=== PATIENT | female | born 1990 | race Caucasian/White ===

== ENCOUNTER → 2016-06-06 | Outpatient (CLI) | payer BC ==
[~2016-06-06] MED LIST: ACET-654 PO; ALEV220T26 PO; CIPR250T2 PO; VICO5TAB16 PO
[2016-06-06 12:00] LABS: FREE T4 1.06 NG/DL (0.76-1.46)
[2016-06-08 10:21] LABS: THYROID PEROXIDASE ANTIBODY 38.4 U/ML (<60.0)
== END ==
LOC: M LAB 11:05
PROVIDERS: ATTEND Internal Medicine Endocrinology, Diabetes & Metabolism
DX: E03.9 Hypothyroidism, unspecified (principal)

== ENCOUNTER → 2016-11-05 | Outpatient (REF) | payer BC ==
[~2016-11-05] MED LIST changes: +BENT20TA PO
== END ==
LOC: M LAB REF 10:06
PROVIDERS: ATTEND Physician Assistant
DX: T24.211D Burn of second degree of right thigh, subsequent encounter (principal); X58.XXXD Exposure to other specified factors, subsequent encounter; Y93.9 Activity, unspecified; Y92.9 Unspecified place or not applicable; Y99.8 Other external cause status

== ENCOUNTER 2017-02-14 12:12 | Emergency (ER) | payer BC ==
[~2017-02-14] VITALS: Ht 157.5 cm; Wt 80.9 kg
[~2017-02-14 12:12] MED LIST changes: -BENT20TA PO
[2017-02-14] MEDS ORDERED: KETOROLAC 30 MG/ML VIAL (J1885) IV ONE (12:45)
[2017-02-14] MEDS ORDERED: NS 1,000 ML IV ONE (12:45)
[2017-02-14] MEDS ORDERED: ONDANSETRON 4MG/2ML VIAL (J2405) IV ONE (12:45)
[2017-02-14 13:22] LABS: BASO # 0.1 10^3/uL (0.0-0.2); BASO % 0.6 % (0.0-1.0); EOS # 0.6 10^3/uL (0.0-0.50); EOS % 6.2 % (0.0-3.0); IMMATURE GRANULOCYTE % 0.2 % (0-0); LYMPH # 3.1 10^3/uL (1.5-6.5); MEAN CORPUSCULAR HEMOGLOBIN 23.5 pg (27.0-33.0); MEAN CORPUSCULAR HGB CONC 30.6 g/dl (32.0-36.5); MEAN CORPUSCULAR VOLUME 76.7 fl (80.0-96.0); MONO # 0.8 10^3/uL (0.0-0.8); MONO % 8.9 % (0.0-5.0); NEUTROPHILS # 4.8 10^3/uL (1.8-7.7); NEUTROPHILS % 51.1 % (36.0-66.0); PLATELET COUNT, AUTOMATED 412 10^3/uL (150-450); RED CELL DISTRIBUTION WIDTH 15.4 % (11.5-14.5); WHITE BLOOD COUNT 9.4 10^3/uL (4.0-10.0)
[2017-02-14 13:39] LABS: ALBUMIN 3.5 GM/DL (3.2-5.2); ALKALINE PHOSPHATASE 125 U/L (45-117); ALT/SGPT 42 U/L (12-78); AMYLASE 76 U/L (25-115); ANION GAP 5 MEQ/L (8-16); AST/SGOT 31 U/L (15-37); BILIRUBIN,DIRECT < 0.1 MG/DL (0.0-0.2); BILIRUBIN,TOTAL 0.3 MG/DL (0.2-1.0); BLOOD UREA NITROGEN 7 MG/DL (7-18); CARBON DIOXIDE LEVEL 27 MEQ/L (21-32); CHLORIDE LEVEL 105 MEQ/L (98-107); CONTROL LINE HCG INT CTR LINE PRESENT; CREATININE FOR GFR 0.75 MG/DL (0.55-1.02); GLOMERULAR FILTRATION RATE > 60.0 (>60); GLUCOSE, FASTING 89 MG/DL (70-105); POTASSIUM SERUM 3.9 MEQ/L (3.5-5.1); SODIUM LEVEL 137 MEQ/L (136-145); TOTAL PROTEIN 7.9 GM/DL (6.4-8.2)
[2017-02-14] MEDS ORDERED: ISOVUE-370 76% 100ML VIAL (Q9967) As Ordered ONE (13:44)
[2017-02-14] MEDS ORDERED: BENT20TA PO (14:23)
--- NOTE | 2017-02-14 14:28 | REP ---
REASON FOR EXAM: Right lower quadrant pain. COMPARISON: 05/09/2013 CONTRAST: 100 mL Isovue 370 The lung bases are clear and unchanged. The liver, gallbladder, spleen, pancreas, adrenal glands and kidneys are within normal limits. The abdominal aorta and para-aortic regions are within normal limits. There is no free fluid or free air. The bowel loops and their mesenteries are within normal limits. CT PELVIS: There is no pelvic mass or adenopathy. There is no free fluid or free air. The bowel loops and their mesenteries are within normal limits. The imaged osseous structures are stable and intact. IMPRESSION: CT findings are within normal limits. Signed by Roberto Carlos Tompkins DO 02/14/2017 03:32 P
[2017-02-14 14:29] VITALS: BP 112/65
== END 2017-02-14 14:40 | disposition home or self-care (01) ==
LOC: M ED 12:12
DX: R10.84 Generalized abdominal pain (principal); K58.8 Other irritable bowel syndrome
CPT/HCPCS: 74177; 80048; 80076; 81001; 81025; 82150; 83690; 84703; 85025; 96374; 96375; 99283; J1885; J2405; Q9967

== ENCOUNTER → 2017-05-19 | Outpatient (CLI) | payer BC | LOC: M RAD 13:18 | DX: R10.31 Right lower quadrant pain (principal); N94.6 Dysmenorrhea, unspecified | CPT/HCPCS: 76856 ==

== ENCOUNTER → 2017-05-22 | Outpatient (CLI) | payer BC ==
[2017-05-22 12:08] LABS: BASO # 0.1 10^3/uL (0.0-0.2); BASO % 0.6 % (0.0-1.0); EOS # 0.3 10^3/uL (0.0-0.50); EOS % 4.1 % (0.0-3.0); HEMATOCRIT 36.2 % (36.0-47.0); HEMOGLOBIN 11.3 g/dl (12.0-16.0); IMMATURE GRANULOCYTE % 0.2 % (0-0); LYMPH % 36.7 % (24.0-44.0); MEAN CORPUSCULAR HEMOGLOBIN 24.2 pg (27.0-33.0); MEAN CORPUSCULAR HGB CONC 31.2 g/dl (32.0-36.5); MEAN CORPUSCULAR VOLUME 77.5 fl (80.0-96.0); MONO # 0.6 10^3/uL (0.0-0.8); MONO % 7.6 % (0.0-5.0); NEUTROPHILS # 4.1 10^3/uL (1.8-7.7); NEUTROPHILS % 50.8 % (36.0-66.0); PLATELET COUNT, AUTOMATED 409 10^3/uL (150-450); RED BLOOD COUNT 4.67 10^6/uL (4.00-5.40); RED CELL DISTRIBUTION WIDTH 14.7 % (11.5-14.5); WHITE BLOOD COUNT 8.1 10^3/uL (4.0-10.0)
[2017-05-22 12:41] LABS: ALBUMIN 3.7 GM/DL (3.2-5.2); ALKALINE PHOSPHATASE 131 U/L (45-117); ALT/SGPT 29 U/L (12-78); ANION GAP 6 MEQ/L (8-16); AST/SGOT 24 U/L (7-37); BILIRUBIN,TOTAL 0.4 MG/DL (0.2-1.0); BLOOD UREA NITROGEN 9 MG/DL (7-18); CALCIUM LEVEL 8.8 MG/DL (8.5-10.1); CARBON DIOXIDE LEVEL 26 MEQ/L (21-32); CHLORIDE LEVEL 107 MEQ/L (98-107); CHOLESTEROL LEVEL 180 MG/DL (<200); CHOLESTEROL RISK RATIO 3.461 (<5); GLOMERULAR FILTRATION RATE > 60.0 (>60); GLUCOSE, FASTING 78 MG/DL (70-105); HDL CHOLESTEROL 52 MG/DL (>40); LDL CHOLESTEROL 105.2 MG/DL (<100); NON-HDL-C 128 MG/DL; POTASSIUM SERUM 4.1 MEQ/L (3.5-5.1); SODIUM LEVEL 139 MEQ/L (136-145); TOTAL PROTEIN 7.8 GM/DL (6.4-8.2); TRIGLYCERIDES LEVEL 114 MG/DL (<150)
== END ==
LOC: M LAB 11:29
DX: N94.6 Dysmenorrhea, unspecified (principal); R10.31 Right lower quadrant pain
CPT/HCPCS: 84443

== ENCOUNTER → 2017-06-17 | Outpatient (CLI) | payer BC | LOC: M RAD 08:06 | DX: R10.31 Right lower quadrant pain (principal); K76.0 Fatty (change of) liver, not elsewhere classified | CPT/HCPCS: 76705 ==

== ENCOUNTER → 2017-10-06 | Outpatient (REF) | payer BC | LOC: M LAB REF 12:04 | DX: Z12.4 Encounter for screening for malignant neoplasm of cervix (principal) | CPT/HCPCS: G0123 ==

== ENCOUNTER → 2017-12-28 | Outpatient (REF) | payer BC | LOC: M LAB REF 17:56 | DX: K29.71 Gastritis, unspecified, with bleeding (principal) | CPT/HCPCS: 87086 ==

== ENCOUNTER → 2017-12-28 | Outpatient (CLI) | payer BC ==
[2017-12-28 18:27] LABS: BASO # 0.1 10^3/uL (0.0-0.2); BASO % 0.7 % (0.0-1.0); EOS # 0.6 10^3/uL (0.0-0.50); EOS % 6.1 % (0.0-3.0); HEMATOCRIT 32.5 % (36.0-47.0); HEMOGLOBIN 9.9 g/dl (12.0-15.5); IMMATURE GRANULOCYTE % 0.3 % (0-3.0); MEAN CORPUSCULAR HEMOGLOBIN 22.8 pg (27.0-33.0); MEAN CORPUSCULAR HGB CONC 30.5 g/dl (32.0-36.5); MEAN CORPUSCULAR VOLUME 74.9 fl (80.0-96.0); MONO # 0.8 10^3/uL (0.0-0.8); MONO % 8.3 % (0.0-5.0); NEUTROPHILS % 52.6 % (36.0-66.0); PLATELET COUNT, AUTOMATED 464 10^3/uL (150-450); RED BLOOD COUNT 4.34 10^6/uL (4.00-5.40); WHITE BLOOD COUNT 9.5 10^3/uL (4.0-10.0)
[2017-12-28 19:24] LABS: ALBUMIN 3.2 GM/DL (3.2-5.2); ALBUMIN/GLOBULIN RATIO 0.73 (1.00-1.93); ALKALINE PHOSPHATASE 105 U/L (45-117); ALT/SGPT 31 U/L (12-78); AMYLASE 73 U/L (25-115); ANION GAP 9 MEQ/L (8-16); AST/SGOT 21 U/L (7-37); BILIRUBIN,TOTAL 0.3 MG/DL (0.2-1.0); BLOOD UREA NITROGEN 9 MG/DL (7-18); CALCIUM LEVEL 8.6 MG/DL (8.5-10.1); CARBON DIOXIDE LEVEL 25 MEQ/L (21-32); CHLORIDE LEVEL 108 MEQ/L (98-107); CREATININE FOR GFR 0.63 MG/DL (0.55-1.30); FREE T4 1.08 NG/DL (0.76-1.46); GLOMERULAR FILTRATION RATE > 60.0 (>60); GLUCOSE, FASTING 90 MG/DL (70-100); LIPASE 169 U/L (73-393); POTASSIUM SERUM 4.1 MEQ/L (3.5-5.1); SODIUM LEVEL 142 MEQ/L (136-145); TOTAL PROTEIN 7.6 GM/DL (6.4-8.2)
== END ==
LOC: M WUC 14:32
DX: K92.0 Hematemesis (principal)
CPT/HCPCS: 82150

== ENCOUNTER → 2018-04-25 | Outpatient (REF) | payer BC, MEDICAID ==
[~2018-04-25] MED LIST changes: +BENT20TA PO
== END ==
LOC: M LAB REF 15:19
PROVIDERS: ATTEND Physician Assistant
DX: N39.0 Urinary tract infection, site not specified (principal)

== ENCOUNTER 2018-05-31 23:59 | Inpatient (IN) | payer BC, MEDICAID, OTHER ==
[~2018-05-31] VITALS: Ht 172.7 cm; Wt 81.5 kg
[2018-06-01 00:39] LABS: HEMATOCRIT 38.1 % (36.0-47.0); HEMOGLOBIN 11.5 g/dl (12.0-15.5); MEAN CORPUSCULAR HEMOGLOBIN 22.2 pg (27.0-33.0); MEAN CORPUSCULAR HGB CONC 30.2 g/dl (32.0-36.5); MEAN CORPUSCULAR VOLUME 73.4 fl (80.0-96.0); PLATELET COUNT, AUTOMATED 524 10^3/uL (150-450); RED BLOOD COUNT 5.19 10^6/uL (4.00-5.40); WHITE BLOOD COUNT 12.2 10^3/uL (4.0-10.0)
[2018-06-01] MEDS ORDERED: NS 1,000 ML IV ONE (00:45)
[2018-06-01 00:51] LABS: HCG, SERUM QUALITATIVE NEGATIVE (NEGATIVE)
[2018-06-01 01:03] LABS: AMPHETAMINES LEVEL URINE NEGATIVE (NEGATIVE); BARBITURATES URINE NEGATIVE (NEGATIVE); BENZODIAZEPINES URINE NEGATIVE (NEGATIVE); CANNABINOIDS URINE NEGATIVE (NEGATIVE); COCAINE METABOLITE URINE NEGATIVE (NEGATIVE); METHADONE URINE NEGATIVE (NEGATIVE); OPIATES URINE NEGATIVE (NEGATIVE); PHENCYCLIDINE URINE NEGATIVE (NEGATIVE)
[2018-06-01 01:16] LABS: ACETAMINOPHEN LEVEL < 2.0 UG/ML (10.0-30.0); ALBUMIN 3.2 GM/DL (3.2-5.2); ALT/SGPT 40 U/L (12-78); BILIRUBIN,DIRECT < 0.1 MG/DL (0.0-0.2); BILIRUBIN,TOTAL 0.1 MG/DL (0.2-1.0); BLOOD UREA NITROGEN 7 MG/DL (7-18); CALCIUM LEVEL 8.5 MG/DL (8.5-10.1); CARBON DIOXIDE LEVEL 24 MEQ/L (21-32); CHLORIDE LEVEL 106 MEQ/L (98-107); CPK CREATINE PHOSPHOKINASE 114 U/L (26-192); CREATININE FOR GFR 0.77 MG/DL (0.55-1.30); ETHYL ALCOHOL (ETHANOL) < 0.003 % (0.000-0.010); GLOMERULAR FILTRATION RATE > 60.0 (>60); GLUCOSE, FASTING 117 MG/DL (70-100); POTASSIUM SERUM 3.7 MEQ/L (3.5-5.1); SALICYLATE LEVEL < 1.7 MG/DL (5.0-30.0); SODIUM LEVEL 138 MEQ/L (136-145); TOTAL PROTEIN 7.8 GM/DL (6.4-8.2)
[2018-06-01 01:54] LABS: EOSINOPHILS 1 % (0-5); LYMPHOCYTES 34 % (16-52); MONOCYTES 8 % (0-8); NEUTROPHILS 57 % (35-75); PLATELET ESTIMATE INCREASED (NORMAL)
[2018-06-01 01:55] LABS: ANISOCYTOSIS 1+
[2018-06-01] MEDS ORDERED: LORazepam 2 MG/ML VIAL (J2060) IV STA (02:08)
[2018-06-01 04:02] LABS: FREE T4 1.06 NG/DL (0.76-1.46)
[2018-06-01 08:45] LABS: FERRITIN 4 NG/ML (8-252); IRON (FE) 22 UG/DL (50-170); PERCENT SATURATION 4.5 % (13.2-45.0); TOTAL IRON BINDING CAPACITY 492 UG/DL (250-450)
[2018-06-01] MEDS: SERTRALINE HCL 25 MG TABLET PO SCH (09:00)
[2018-06-01] MEDS ORDERED: FERROUS GLUCONATE 324 MG TAB PO ONE (10:00)
[2018-06-01] MEDS ORDERED: LORazepam 0.5 MG TAB PO PRN (14:00)
[2018-06-01] MEDS ORDERED: traZODone 50 MG TAB PO PRN (14:00)
[2018-06-01] MEDS ORDERED: MAALOX 30 ML SUSP *UDC PO PRN (14:00)
[2018-06-01] MEDS ORDERED: ACETAMINOPHEN TAB 650MG DOSE (2X325MG) PO PRN (14:00)
[2018-06-01] MEDS ORDERED: MOM 30ML SUSPENSION UDC PO PRN (14:00)
[2018-06-01 14:41] LABS: FOLATE 17.9 NG/ML
[2018-06-01 14:58] VITALS: BP 152/83
--- NOTE | 2018-06-01 17:46 | ECGEPIP ---
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
[2018-06-01] MEDS: LEVONOR ETH ESTRAD PO SCH (22:16)
[2018-06-02 06:42] VITALS: BP 128/61
[2018-06-02] MEDS: SERTRALINE HCL 25 MG TABLET PO SCH (08:49)
--- NOTE | 2018-06-02 09:41 | HPEPDOC ---
[facility] Medical History & Physical Date of Admission Jun 01, 2018 History and Physical PCP: Jennifer Wolf MD ATTENDING: Dr. Charles Miles HPI: 28yoF admitted to [facility] for unspecified mood disorder, being medically examined today. No acute medical complaints today. Denies any fevers, chills, weakness, fatigue, CADENA, CP, SOB, cough, palpitations, abdominal pain, N/V/D or changes in bowel or bladder habits. PMHx: anxiety depression H/O SI PSHX: Pyelonephritis/S/P Lithotripsy 2013. SOCHX: Resides in: [facility] Marital Status: Single Kids: None Employment: [employer] employee Tobacco use: Denies ETOH: Denies Illicit Drugs: Denies IV Drug Use: Denies Tattoos done unprofessionally: Denies FAMHX: Mother: Alive, diabetes Father: Alive, well Siblings: None Children: None Unexpected deaths due to medical reasons: None. ROS: As noted in HPI, otherwise 11pt ROS of systems reviewed and remarkable only for LMP unknown. PE: GEN: 28 yo F, appears stated age. Well-nourished, well developed. No acute distress. Alert and oriented x 3. Pleasant, interactive. HEENT: Normocephalic, atraumatic. Pupils are equal, round, and reactive to light. Extraocular movements are intact. No nystagmus appreciated. Sclera are nonicteric. Conjunctiva without injection. Nose midline. Nasal turbinates without bogginess. EACs both patent BL. TMs both visualized and mancuso with good cone of light, no bulging or erythema. No facial asymmetry. Moist mucous membranes. Dentition fair. Pharynx pink and moist, no cobblestoning. Neck supple, trachea midline. No lymphadenopathy or thyromegaly appreciated. CHEST: Regular rate and rhythm, +S1, +S2 LUNGS: Clear to auscultation bilaterally. No wheezes, rales, or rhonchi. Breathing appears symmetric and easy. Patient is speaking in full sentences. No accessory muscle use. ABD: Round, soft, non-tender, non-distended. +Bowel sounds throughout. No rebound or guarding. No costovertebral angle tenderness. EXT: Pulses 2+ bilaterally dorsalis pedis and radial. No lower extremity edema appreciated. SKIN: [place], dry, warm. Capillary refill <2sec. No rashes. NEURO: Alert and oriented x 3. Cranial nerves III-XII are intact. No focal deficits appreciated. EKG: SINUS TACHYCARDIA NO PRIOR FOR COMPARISON ABNORMAL RHYTHM ECG Electronically Signed On 06-01-2018 17:46:24 EST by Nancy Fall A&P: 28yoF admitted to [facility] for unspecified mood disorder 1. Psych. Plan per Psychiatry. EKG on file. 2. Leukocytosis. Patient is afebrile. Possible stress response. Recheck CBC in a.m. Check UA with reflex culture. 3. Abnormal TSH. Recheck TFTs in a.m. 4. Follow up with PCP on discharge. 5. Mild anemia. Hemoglobin is noted to be 11.5. Patient states she is currently on OCP related to heavy menstrual bleeding. The patient is noted to be iron deficient, add iron supplement twice a day. Folate is within normal limits. Vitamin B12 pending. 6. Continue OCP. 7. Staff member Daniela LOPEZ present throughout exam. Vital Signs Vital Signs Date Time Temp Pulse Resp B/P (MAP) Pulse Ox O2 Delivery O2 Flow Rate FiO2 06/02/18 06:42 98.1 94 14 128/61 (83) Room Air 06/01/18 14:28 99 Laboratory Data CBC/BMP Item Value Date Time White Blood Count 12.2 10^3/uL H 06/01/18 0025 Red Blood Count 5.19 10^6/uL 06/01/18 0025 Hemoglobin 11.5 g/dl L 06/01/18 002 Hematocrit 38.1 % 06/01/18 0025 Mean Corpuscular Volume 73.4 fl L 06/01/18 0025 Mean Corpuscular Hemoglobin 22.2 pg L 06/01/18 0025 Mean Corpuscular Hemoglobin Concent 30.2 g/dl L 06/01/18 0025 Red Cell Distribution Width 15.9 % H 06/01/18 002 Platelet Count 524 10^3/uL H 06/01/18 0025 Sodium Level 138 MEQ/L 06/01/18 0025 Potassium Level 3.7 MEQ/L 06/01/18 0025 Chloride Level 106 MEQ/L 06/01/18 0025 Carbon Dioxide Level 24 MEQ/L 06/01/18 0025 Anion Gap 8 MEQ/L 06/01/1824 Blood Urea Nitrogen 7 MG/DL 06/01/1824 Creatinine 0.77 MG/DL 06/01/1824 Glomerular Filtration Rate > 60.0 06/01/1824 Fasting Glucose 117 MG/DL H 06/01/1824 Calcium Level 8.5 MG/DL 06/01/1824 Iron Level 22 UG/DL L 06/01/1824 Total Iron Binding Capacity 492 UG/DL H 06/01/1824 Transferrin % Saturation 4.5 % L 06/01/1824 Ferritin 4 NG/ML L 06/01/1824 Total Bilirubin 0.1 MG/DL L 06/01/1824 Direct Bilirubin < 0.1 MG/DL 06/01/1824 Aspartate Amino Transf (AST/SGOT) 26 U/L 06/01/1824 Alanine Aminotransferase (ALT/SGPT) 40 U/L 06/01/1824 Alkaline Phosphatase 114 U/L 06/01/1824 Total Creatine Kinase 114 U/L 06/01/1824 Total Protein 7.8 GM/DL 06/01/1824 Albumin 3.2 GM/DL 06/01/1824 Albumin/Globulin Ratio 0.70 L 06/01/1824 Folate 17.9 NG/ML 06/01/1824 Thyroid Stimulating Hormone (TSH) 5.550 uIU/ML H 06/01/1824 Free Thyroxine 1.06 NG/DL 06/01/1824 Human Chorionic Gonadotropin, Qual NEGATIVE 06/01/1824 Salicylates Level < 1.7 MG/DL L 06/01/1824 Urine Opiates Screen NEGATIVE 06/01/1824 Urine Methadone Screen NEGATIVE 06/01/1824 Acetaminophen Level < 2.0 UG/ML L 06/01/1824 Urine Barbiturates Screen NEGATIVE 06/01/1824 Urine Phencyclidine Screen NEGATIVE 06/01/1824 Urine Amphetamines Screen NEGATIVE 06/01/1824 Urine Benzodiazepines Screen NEGATIVE 06/01/1824 Urine Cocaine Metabolite Screen NEGATIVE 06/01/1824 Urine Cannabinoids Screen NEGATIVE 06/01/1824 Ethyl Alcohol Level < 0.003 % 06/01/1824 Home Medications No Active Prescriptions or Reported Meds Allergies Coded Allergies: No Known Drug Allergy (Verified Allergy, Unknown, 06/01/18) Shanika Queen Jun 02, 2018 09:41
[2018-06-02] MEDS: FERROUS SULFATE 325MG TAB PO SCH ×2 (09:53→21:04)
[2018-06-02 18:00] VITALS: BP 144/84
[2018-06-02] MEDS: LEVONOR ETH ESTRAD PO SCH (21:00)
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
[2018-06-03 06:46] LABS: HEMATOCRIT 37.8 % (36.0-47.0); HEMOGLOBIN 11.5 g/dl (12.0-15.5); MEAN CORPUSCULAR HEMOGLOBIN 21.7 pg (27.0-33.0); MEAN CORPUSCULAR HGB CONC 30.4 g/dl (32.0-36.5); MEAN CORPUSCULAR VOLUME 71.5 fl (80.0-96.0); PLATELET COUNT, AUTOMATED 483 10^3/uL (150-450); RED BLOOD COUNT 5.29 10^6/uL (4.00-5.40); WHITE BLOOD COUNT 8.2 10^3/uL (4.0-10.0)
[2018-06-03 07:00] VITALS: BP 153/83
[2018-06-03 08:16] LABS: FREE THYROXINE INDEX 3.9 % (1.3-4.8); THYROID STIMULATING HORMONE 3.01 uIU/ML (0.358-3.740); THYROXINE (T4) 14.1 UG/DL (4.5-12.0)
[2018-06-03] MEDS: SERTRALINE HCL 25 MG TABLET PO SCH (09:04)
[2018-06-03] MEDS: FERROUS SULFATE 325MG TAB PO SCH ×2 (09:04→20:55)
--- NOTE | 2018-06-03 17:40 | MHIPNPDOC ---
[facility] Progress Note Progress Note DATE OF SERVICE: 06/03/18 HISTORY: Patient is a 28 -year-old , female, who as per ED report: "Pt presented via EMS after ingesting 4-5 macrobid in suicidal gesture. Pt states she has been stressed both at work and at home. Per pt, she has endometriosis and so has difficulty at work as she has to sit frequently. Pt states her mother recently moved to [facility], pt has taken over her apartment. Pt states her s.o. got a puppy recently, so he has not been spending as much time with her. Pt states his support is important when she is feeling ill. Pt reports feeling hopeless about her health, does not see it getting better. Pt denies AH/VH, no HI, no drug or ETOH abuse. Pt reports poor sleep due to having racing thoughts, thinking "about bad things that happened in my life, from yesterday to five years ago". Pt is not able to CFS at this time. VITAL SIGNS: See below. NEW TEST RESULTS: See below CURRENT MEDICATIONS: See below. MENTAL STATUS EXAMINATION: Patient is a 28-year old female, who is alert, cooperative, dressed in hospital clothes, overweight, pleasant. Speech: Is spontaneous and fluent, normal rate, tone and volume. Language skills are good. Thought processes including: intact. Thought content: goal orientated, positive. Description of abnormal or psychotic thoughts: Denies SI, denies HI, denies AV hallucinations, denies thought delusions, admits anxiety Judgment: improving Insight: improving. Orientation: x3. Recent and remote memory: intact. Attention span and concentration: good. Language: good. Fund of knowledge: average. Mood: less anxious. Affect: congruent with mood. DIAGNOSES: 1. Social anxiety disorder. 2. KIAN. 3. Major depressive disorder, recurrent 4. PTSD ASSESSMENT: Patient says she is doing well with Zoloft 25 mgs Po daily, she has felt less anxious. She said she felt anxious yesterday when she was changed from her room into another room. today she had to be changed again but she did not become as anxious as yesterday and she did not get a panic attack. Apparently patient got a case specialist and if she continues to improve, she will be discharged on Wednesday. MANAGEMENT PLAN: continue with current treatment plan. TIME SPENT: 20 minutes. Vital Signs Vital Signs Date Time Temp Pulse Resp B/P (MAP) Pulse Ox O2 Delivery O2 Flow Rate FiO2 06/03/18 07:00 97.3 91 16 153/83 (106) 06/02/18 06:42 Room Air 06/01/18 14:28 99 Laboratory Data 24H Labs Laboratory Tests 2 06/03/18 06:22: Nucleated Red Blood Cells % (auto) 0.0, Thyroid Stimulating Hormone (TSH) 3.010, Free Thyroxine Index 3.9, Thyroxine (T4) 14.1H, Triiodothyronine (T3) Uptake 28L CBC/BMP Laboratory Tests 06/03/18 06:22 Red Blood Count 5.29, Mean Corpuscular Volume 71.5 L, Mean Corpuscular Hemoglobin 21.7 L, Mean Corpuscular Hemoglobin Concent 30.4 L, Red Cell Distribution Width 15.9 H Current Medications Current Medications Acetaminophen (Tylenol Tab) 650 mg Q6HP PRN PO HEADACHE or DISCOMFORT; Start 06/01/18 at 14:00 Al Hydrox/Mg Hydrox/Simethicone (Mylanta) 30 ml Q4HP PRN PO HEARTBURN/INDIGESTION; Start 06/01/18 at 14:00 Ferrous Sulfate (Ferrous Sulfate) 325 mg BID PO Last administered on 06/03/18at 09:04; Start 06/02/18 at 09:00 Home Med (Med Rec Complete!) ASDIRECTED XX ; Start 06/01/18 at 14:00; Stop 06/01/18 at 14:00; Status DC Lorazepam (Ativan) 0.5 mg Q6HP PRN PO ANXIETY/AGITATION; Start 06/01/18 at 14:00 Lorazepam (Ativan) 0.5 mg STAT STAT IV Last administered on 06/01/18at 02:15; Start 06/01/18 at 02:08; Stop 06/01/18 at 02:09; Status DC Magnesium Hydroxide (Milk Of Magnesia) 30 ml DAILYPRN PRN PO CONSTIPATION; Start 06/01/18 at 14:00 Patient Own Medication (Patient'S Own Med) LEVONOR-ETH ESTRAD 0.15-0.... QHS PO Last administered on 06/02/18at 21:00; Start 06/01/18 at 21:00 Sertraline HCl (Zoloft) 25 mg DAILY PO Last administered on 06/03/18at 09:04; Start 06/01/18 at 09:00 Trazodone HCl (Desyrel) 50 mg QHSP PRN PO INSOMNIA; Start 06/01/18 at 14:00 Allergies Coded Allergies: No Known Drug Allergy (Verified Allergy, Unknown, 06/01/18) TOMER JARQUIN MD Jun 03, 2018 17:40
[2018-06-03 18:25] VITALS: BP 138/81
[2018-06-03] MEDS: LEVONOR ETH ESTRAD PO SCH (20:56)
[2018-06-04 06:16] VITALS: BP 119/67
[2018-06-04] MEDS: FERROUS SULFATE 325MG TAB PO SCH ×2 (08:28→21:35)
[2018-06-04] MEDS: SERTRALINE HCL 25 MG TABLET PO SCH (08:28)
[2018-06-04 18:00] VITALS: BP 136/82
[2018-06-04] MEDS: LEVONOR ETH ESTRAD PO SCH (21:36)
--- NOTE | 2018-06-04 22:39 | MHIPNPDOC ---
[facility] Progress Note Progress Note DATE OF SERVICE: 06/04/18 HISTORY: Patient is a 28 -year-old , female, who as per ED report: "Pt presented via EMS after ingesting 4-5 macrobid in suicidal gesture. Pt states she has been stressed both at work and at home. Per pt, she has endometriosis and so has difficulty at work as she has to sit frequently. Pt states her mother recently moved to [facility], pt has taken over her apartment. Pt states her s.o. got a puppy recently, so he has not been spending as much time with her. Pt states his support is important when she is feeling ill. Pt reports feeling hopeless about her health, does not see it getting better. Pt denies AH/VH, no HI, no drug or ETOH abuse. Pt reports poor sleep due to having racing thoughts, thinking "about bad things that happened in my life, from yesterday to five years ago". Pt is not able to CFS at this time. VITAL SIGNS: See below. NEW TEST RESULTS: See below CURRENT MEDICATIONS: See below. MENTAL STATUS EXAMINATION: Patient is a 28-year old female, who is alert, cooperative, dressed in hospital clothes, overweight, pleasant. Speech: Is spontaneous and fluent, normal rate, tone and volume. Language skills are good. Thought processes including: intact. Thought content: goal orientated, positive. Description of abnormal or psychotic thoughts: Denies SI, denies HI, denies AV hallucinations, denies thought delusions, admits anxiety Judgment: improving Insight: improving. Orientation: x3. Recent and remote memory: intact. Attention span and concentration: good. Language: good. Fund of knowledge: average. Mood: less anxious. Affect: congruent with mood. DIAGNOSES: 1. Social anxiety disorder. 2. KIAN. 3. Major depressive disorder, recurrent 4. PTSD ASSESSMENT: Patient is improving, smiling frequently,very pleasant and cooperative. She says she is ready to be discharged, reports that her medicat ions are working well, denies medication side effects. MANAGEMENT PLAN: continue with current treatment plan. TIME SPENT: 20 minutes. Vital Signs Vital Signs Date Time Temp Pulse Resp B/P (MAP) Pulse Ox O2 Delivery O2 Flow Rate FiO2 06/04/18 18:00 98.7 90 18 136/82 (100) 06/02/18 06:42 Room Air 06/01/18 14:28 99 Current Medications Current Medications Acetaminophen (Tylenol Tab) 650 mg Q6HP PRN PO HEADACHE or DISCOMFORT; Start 06/01/18 at 14:00 Al Hydrox/Mg Hydrox/Simethicone (Mylanta) 30 ml Q4HP PRN PO HEARTBURN/I NDIGESTION; Start 06/01/18 at 14:00 Ferrous Sulfate (Ferrous Sulfate) 325 mg BID PO Last administered on 06/04/18at 21:35; Start 06/02/18 at 09:00 Home Med (Med Rec Complete!) ASDIRECTED XX ; Start 06/01/18 at 14:00; Stop 06/01/18 at 14:00; Status DC Lorazepam (Ativan) 0.5 mg Q6HP PRN PO ANXIETY/AGITATION; Start 06/01/18 at 14:00 Lorazepam (Ativan) 0.5 mg STAT STAT IV Last administered on 06/01/18at 02:15; Start 06/01/18 at 02:08; Stop 06/01/18 at 02:09; Status DC Magnesium Hydroxide (Milk Of Magnesia) 30 ml DAILYPRN PRN PO CONSTIPATION; Start 06/01/18 at 14:00 Patient Own Medication (Patient'S Own Med) LEVONOR-ETH ESTRAD 0.15-0.... QHS PO Last administered on 06/04/18at 21:36; Start 06/01/18 at 21:00 Sertraline HCl (Zoloft) 25 mg DAILY PO Last administered on 06/04/18at 08:28; Start 06/01/18 at 09:00 Trazodone HCl (Desyrel) 50 mg QHSP PRN PO INSOMNIA; Start 06/01/18 at 14:00 Allergies Coded Allergies: No Known Drug Allergy (Verified Allergy, Unknown, 06/01/18) TOMER JARQUIN MD Jun 04, 2018 22:39
[2018-06-05 06:23] VITALS: BP 155/78
[2018-06-05] MEDS: FERROUS SULFATE 325MG TAB PO SCH ×2 (09:00→21:44)
[2018-06-05] MEDS: SERTRALINE HCL 25 MG TABLET PO SCH (09:00)
--- NOTE | 2018-06-05 12:27 | MHIPNPDOC ---
[facility] Progress Note Progress Note DATE OF SERVICE: 06/05/18 HISTORY: Patient is a 28 -year-old , female, who as per ED report: "Pt presented via EMS after ingesting 4-5 macrobid in suicidal gesture. Pt states she has been stressed both at work and at home. Per pt, she has endometriosis and so has difficulty at work as she has to sit frequently. Pt states her mother recently moved to [facility], pt has taken over her apartment. Pt states her s.o. got a puppy recently, so he has not been spending as much time with her. Pt states his support is important when she is feeling ill. Pt reports feeling hopeless about her health, does not see it getting better. Pt denies AH/VH, no HI, no drug or ETOH abuse. Pt reports poor sleep due to having racing thoughts, thinking "about bad things that happened in my life, from yesterday to five years ago". Pt is not able to CFS at this time. VITAL SIGNS: See below. NEW TEST RESULTS: See below CURRENT MEDICATIONS: See below. MENTAL STATUS EXAMINATION: Patient is a 28-year old female, who is alert, cooperative, dressed in hospital clothes, overweight, pleasant. Speech: Is spontaneous and fluent, normal rate, tone and volume. Language skills are good. Thought processes including: intact. Thought content: goal orientated, positive. Description of abnormal or psychotic thoughts: Denies SI, denies HI, denies AV hallucinations, denies thought delusions, feels Judgment: improving Insight: improving. Orientation: x3. Recent and remote memory: intact. Attention span and concentration: good. Language: good. Fund of knowledge: average. Mood: less anxious. Affect: congruent with mood. DIAGNOSES: 1. Social anxiety disorder. 2. KIAN. 3. Major depressive disorder, recurrent 4. PTSD ASSESSMENT: Patient's mood and affect are good, they have improved. She continues to be pleasant and cooperative. She is not suicidal,not homicidal, not psychotic. MANAGEMENT PLAN: continue with current treatment plan. Possible discharge tomorrow TIME SPENT: 15 minutes Vital Signs Vital Signs Date Time Temp Pulse Resp B/P (MAP) Pulse Ox O2 Delivery O2 Flow Rate FiO2 06/05/18 06:23 97.9 81 18 155/78 (103) 06/02/18 06:42 Room Air 06/01/18 14:28 99 Current Medications Current Medications Acetaminophen (Tylenol Tab) 650 mg Q6HP PRN PO HEADACHE or DISCOMFORT; Start 06/01/18 at 14:00 Al Hydrox/Mg Hydrox/Simethicone (Mylanta) 30 ml Q4HP PRN PO HEARTBURN/INDIGESTION; Start 06/01/18 at 14:00 Ferrous Sulfate (Ferrous Sulfate) 325 mg BID PO Last administered on 06/05/18at 09:00; Start 06/02/18 at 09:00 Home Med (Med Rec Complete!) ASDIRECTED XX ; Start 06/01/18 at 14:00; Stop 06/01/18 at 14:00; Status DC Lorazepam (Ativan) 0.5 mg Q6HP PRN PO ANXIETY/AGITATION; Start 06/01/18 at 14:00 Lorazepam (Ativan) 0.5 mg STAT STAT IV Last administered on 06/01/18at 02:15; Start 06/01/18 at 02:08; Stop 06/01/18 at 02:09; Status DC Magnesium Hydroxide (Milk Of Magnesia) 30 ml DAILYPRN PRN PO CONSTIPATION; Start 06/01/18 at 14:00 Patient Own Medication (Patient'S Own Med) LEVONOR-ETH ESTRAD 0.15-0.... QHS PO Last administered on 06/04/18at 21:36; Start 06/01/18 at 21:00 Sertraline HCl (Zoloft) 25 mg DAILY PO Last administered on 06/05/18at 09:00; Start 06/01/18 at 09:00 Trazodone HCl (Desyrel) 50 mg QHSP PRN PO INSOMNIA; Start 06/01/18 at 14:00 Allergies Coded Allergies: No Known Drug Allergy (Verified Allergy, Unknown, 06/01/18) TOMER JARQUIN MD Jun 05, 2018 12:27
[2018-06-05 18:00] VITALS: BP 135/86
[2018-06-05] MEDS: LEVONOR ETH ESTRAD PO SCH (21:44)
[2018-06-06 06:00] VITALS: BP 134/78
[2018-06-06] MEDS: FERROUS SULFATE 325MG TAB PO SCH (08:15)
[2018-06-06] MEDS: SERTRALINE HCL 25 MG TABLET PO SCH (08:15)
[2018-06-06] MEDS ORDERED: SERT25TA PO (11:14)
[2018-06-06] MEDS ORDERED: FERR1TAB8 PO (11:14)
--- NOTE | 2018-06-06 17:04 | MHDSPDOC ---
[facility] Discharge Summary Discharge Summary DATE OF ADMISSION: Jun 01, 2018 at 13:59 DATE OF DISCHARGE: Jun 06, 2018 at 13:30 DISCHARGE DIAGNOSES: 1. Social anxiety disorder. 2. KIAN. 3. Major depressive disorder, recurrent 4. PTSD REASON FOR ADMISSION: Chief Complaint: Depression, anxiety and recent suicidal gesture History of Present Illness HISTORY OF THE PRESENT ILLNESS: Patient is a 28 -year-old , female, who as per ED report: "Pt presented via EMS after ingesting 4-5 macrobid in suicidal gesture. Pt states she has been stressed both at work and at home. Per pt, she has endometriosis and so has difficulty at work as she has to sit frequently. Pt states her mother recently moved to [facility], pt has taken over her apartment. Pt states her s.o. got a puppy recently, so he has not been spending as much time with her. Pt states his support is important when she is feeling ill. Pt reports feeling hopeless about her health, does not see it getting better. Pt denies AH/VH, no HI, no drug or ETOH abuse. Pt reports poor sleep due to having racing thoughts, thinking "about bad things that happened in my life, from yesterday to five years ago". Pt is not able to CFS at this time. CONSULTANTS INVOLVED: None TREATMENT AND PROGRESS ON THE UNIT : Upon initial evaluation the patient was very anxious, her voice was shaky and at the same time she was describing how difficult is for her to be with people because she has always had panic attacks especially when she was with persons she didn't know. She mentioned the first episode when she was in school, had a presentation and she was treated poorly by the teacher. She has been diagnosed with depression and anxiety but she says she took antidepressants and she stopped taking it because she started experiencing nightmares that were very frequent and very vivid. She was brought in because her boyfriend thought she had overdosed but she says she didn't, she thinks he over reacted because he knows she has a history of depression and anxiety. She was started on a low dose of Zoloft thinking it could help her with anxiety and depression, It did, she was able to control her anxiety, she was close to developing panic attacks but she didn't because she utilized the coping skills she had recently learned and she was already medicated. She is goal oriented, has plans for the future. she's not suicidal, not homicidal and not psychotic. She was stable to be discharged. HOSPITAL COURSE: As above. DISCHARGE ASSESSMENT: she's not suicidal, not homicidal and not psychotic. She was stable to be discharged. MENTAL STATUS EXAMINATION ON DISCHARGE: Patient is a 28-year old female, who is alert, cooperative, dressed in hospital clothes, overweight, pleasant. Speech: Is spontaneous and fluent, normal rate, tone and volume. Language skills are good. Thought processes including: intact. Thought content: goal orientated, positive. Description of abnormal or psychotic thoughts: Denies SI, denies HI, denies AV hallucinations, denies thought delusions, feels Judgment: improving Insight: improving. Orientation: x3. Recent and remote memory: intact. Attention span and concentration: good. Language: good. Fund of knowledge: average. Mood: euthymic Affect: congruent with mood. DIAGNOSES: 1. Social anxiety disorder. 2. KIAN. 3. Major depressive disorder, recurrent 4. PTSD MEDICATIONS ON DISCHARGE: Scheduled Ferrous Sulfate (Ferrous Sulfate) 325 Mg Tab, 325 MG PO BID for anemia, #14 Sertraline Hcl (Sertraline HCl) 25 Mg Tab, 25 MG PO DAILY for depression, #7 PLAN/FOLLOWUP ARRANGEMENTS: Follow Up Care Education Label * Case Management * Care Coordination/Case Management/Supervision [facility] Follow Up Program * Date Jun 07, 2018 * Time 12:00 * Additional information Zaheer Esteves from [facility] Follow up Plan will visit pt at her home for the appointment. Follow Up Care Education Label * Medical * Medical Follow Up [facility] * Established With This Provider Yes * Therapist MAGY FITZPATRICK * Date Jun 09, 2018 * Time 15:00 * Address of Clinic or Practice [address] [place] [address] * Follow Up Care Education Label * Mental Health Appt 1 * Mental Health TLS * Established With This Provider No * Therapist KAI CHOW * Date Jun 08, 2018 * Time 08:30 * Address of Clinic or Practice [address] [place] [address] * The amount of time spent in the coordination of care for this patient was approximately 30 minutes. Vital Signs/I&Os Vital Signs Date Time Temp Pulse Resp B/P (MAP) Pulse Ox O2 Delivery O2 Flow Rate FiO2 06/06/18 06:00 97.6 97 18 134/78 (96) 06/02/18 06:42 Room Air 06/01/18 14:28 99 Medications Scheduled Ferrous Sulfate (Ferrous Sulfate) 325 Mg Tab, 325 MG PO BID for anemia, #14 Sertraline Hcl (Sertraline HCl) 25 Mg Tab, 25 MG PO DAILY for depression, #7 Allergies Coded Allergies: No Known Drug Allergy (Verified Allergy, Unknown, 06/01/18) TOMER JARQUIN MD Jun 06, 2018 17:01
== END 2018-06-06 13:30 | disposition home or self-care (01) | DRG 755 ==
LOC: M ED 23:59 → EDBD 23:59 → M ED INP 06-01 13:59 → M PSY 06-01 14:48
PROVIDERS: ADMIT Psychiatry & Neurology Psychiatry; ATTEND Psychiatry & Neurology Psychiatry
DX: F40.10 Social phobia, unspecified (principal); F33.9 Major depressive disorder, recurrent, unspecified; F41.1 Generalized anxiety disorder; F43.10 Post-traumatic stress disorder, unspecified; Z62.810 Personal history of physical and sexual abuse in childhood; Z62.811 Personal history of psychological abuse in childhood; D64.9 Anemia, unspecified; Z91.5 Personal history of self-harm

== ENCOUNTER → 2019-04-25 | Outpatient (CLI) | payer MEDICAID ==
[~2019-04-25] MED LIST changes: +FERR1TAB8 PO; +SERT25TA85 PO
[2019-04-25 17:56] LABS: BASO # 0.1 10^3/uL (0.0-0.2); BASO % 0.7 % (0.0-1.0); EOS # 0.4 10^3/uL (0.0-0.5); EOS % 5.6 % (0.0-3.0); HEMATOCRIT 45.4 % (36.0-47.0); HEMOGLOBIN 14.4 g/dl (12.0-15.5); LYMPH # 2.6 10^3/uL (1.5-5.0); LYMPH % 35.2 % (24.0-44.0); MEAN CORPUSCULAR HEMOGLOBIN 27.7 pg (27.0-33.0); MEAN CORPUSCULAR HGB CONC 31.7 g/dl (32.0-36.5); MEAN CORPUSCULAR VOLUME 87.3 fl (80.0-96.0); MONO # 0.5 10^3/uL (0.0-0.8); MONO % 7.4 % (0.0-5.0); NEUTROPHILS # 3.7 10^3/uL (1.5-8.5); NEUTROPHILS % 50.8 % (36.0-66.0); PLATELET COUNT, AUTOMATED 371 10^3/uL (150-450); WHITE BLOOD COUNT 7.3 10^3/uL (4.0-10.0)
[2019-04-25 17:59] LABS: ALBUMIN 3.8 GM/DL (3.2-5.2); ALT/SGPT 43 U/L (12-78); BILIRUBIN,TOTAL 0.4 MG/DL (0.2-1.0); BLOOD UREA NITROGEN 10 MG/DL (7-18); CALCIUM LEVEL 9.5 MG/DL (8.5-10.1); CARBON DIOXIDE LEVEL 28 MEQ/L (21-32); CHLORIDE LEVEL 105 MEQ/L (98-107); CREATININE FOR GFR 0.74 MG/DL (0.55-1.30); GLOMERULAR FILTRATION RATE > 60.0 (>60); GLUCOSE, FASTING 78 MG/DL (70-100); LIPASE 102 U/L (73-393); POTASSIUM SERUM 4.2 MEQ/L (3.5-5.1); SODIUM LEVEL 140 MEQ/L (136-145)
== END ==
LOC: M WUC 12:37
PROVIDERS: ATTEND Physician Assistant
DX: K29.71 Gastritis, unspecified, with bleeding (principal)

== ENCOUNTER → 2019-04-25 | Outpatient (REF) | payer MEDICAID | LOC: M LAB REF 16:19 | PROVIDERS: ATTEND Physician Assistant | DX: R10.30 Lower abdominal pain, unspecified (principal) ==

== ENCOUNTER → 2021-09-24 | Outpatient (REF) | payer MEDICAID ==
[2021-09-24 23:01] LABS: RSV AMPLIFICATION NEGATIVE (NEGATIVE)
== END ==
LOC: M LAB REF 19:27
PROVIDERS: ATTEND Physician Assistant
DX: J06.9 Acute upper respiratory infection, unspecified (principal)

== ENCOUNTER → 2021-09-25 | Outpatient (CLI) | payer MEDICAID ==
[2021-09-27 13:07] LABS: IgG P18 AB Absent (.); IgG P23 AB Absent (.); IgG P28 AB Absent (.); IgG P30 AB Absent (.); IgG P39 AB Absent (.); IgG P41 AB Present (.); IgG P45 AB Absent (.); IgG P66 AB Absent (.); IgG P93 AB Absent (.); IgM P23 AB Absent (.); IgM P39 AB Absent (.); IgM P41 AB Absent (.); LYME IgG WB INTERPRETATION Negative (.); LYME IgM WB INTERPRETATION Negative (.)
== END ==
LOC: M WUC 12:58
PROVIDERS: ATTEND Physician Assistant
DX: J06.9 Acute upper respiratory infection, unspecified (principal); R11.0 Nausea